=== PATIENT | male | born 1965 | race Hispanic/Latino ===

== ENCOUNTER → 2019-01-23 | Outpatient (CLI) | payer OTHER ==
--- NOTE | 2019-01-23 09:41 | REP ---
PA and lateral chest: There are no comparisons. There is slight deformity of the left fifth rib posterolaterally consistent with an old healed fracture. This is superimposed by the anterior tip of the left third rib obscuring visualization somewhat. The ribs otherwise are unremarkable. Lung haskins are clear. Cardiac size normal. The brandi, mediastinum, skeletal structures are otherwise unremarkable. Impression: Essentially negative PA and lateral chest. There are findings compatible with an old healed fracture posterolaterally in the left fifth rib. Electronically Signed by Saw Hensley MD 01/23/2019 09:33 A
== END ==
LOC: M RAD 08:26
PROVIDERS: ATTEND Surgery
DX: Z87.81 Personal history of (healed) traumatic fracture (principal)